=== PATIENT | female | born 1995 | race Hispanic/Latino ===

== ENCOUNTER 2024-09-10 20:03 | Inpatient (IN) | payer SELFPAY ==
[~2024-09-10] VITALS: Ht 160 cm; Wt 161.9 kg
[2024-09-10 20:36] VITALS: TEMP 99.6
[2024-09-10 21:15] LABS: BASOPHILS % 0.3 % (0.0-1.0); EOSINOPHILS % 1.3 % (0.0-6.0); LYMPHOCYTES % 17.1 % (18.0-39.1); MONOCYTES % 8.0 % (4.4-11.3); NEUTROPHILS % 73.1 % (38.7-80.0); RED CELL DISTRIBUTION WIDTH 16.5 % (11.7-14.4)
[2024-09-10] MEDS: SODIUM CHLORIDE 0.9% 1000ML 1,000 ML IV ONE (21:23)
[2024-09-10] MEDS: ACETAMINOPHEN 325 MG TAB PO ONE (21:25)
[2024-09-10 21:44] LABS: EST GLOMERULAR FILTRATION RATE 119.0 ML/MIN (>=60)
[2024-09-10] MEDS ORDERED: IOPAMIDOL 370 MG/ML 100 ML INFUS..BTL INJ ONE (22:10)
[2024-09-10] MEDS: Vancomycin IV 1 GM in SODIUM CHLORIDE 0.9% 250ML 250 ML IV ONE (22:14)
[2024-09-10] MEDS ORDERED: DEXTROSE 50% SYRINGE 50 ML IV PRN (22:45)
[2024-09-10] MEDS ORDERED: ONDANSETRON HCL INJ 2MG/ML 2ML 2 MG/ML VIAL IV PRN (22:45)
[2024-09-10] MEDS ORDERED: Morphine 4mg INJECTION 4 MG/ML INJ IV PRN (22:45)
[2024-09-10 23:00] VITALS: PULSE 96; RESP 16
[2024-09-10 23:55] VITALS: BP 95/48; PULSE 100; RESP 19; TEMP 97.5
[2024-09-11] VITALS (10 sets, daily range): BP systolic 95–143; BP diastolic 48–89; PULSE 70–100; RESP 18–20; TEMP 97.5–98.6; O2SAT 93–100
[2024-09-11] MEDS: SODIUM CHLORIDE 0.9% 1000ML 1,000 ML IV SCH (00:22)
[2024-09-11 05:22] LABS: BASOPHILS % 0.4 % (0.0-1.0); EOSINOPHILS % 1.7 % (0.0-6.0); LYMPHOCYTES % 21.1 % (18.0-39.1); MONOCYTES % 9.9 % (4.4-11.3); NEUTROPHILS % 66.7 % (38.7-80.0); RED CELL DISTRIBUTION WIDTH 16.6 % (11.7-14.4)
[2024-09-11 06:19] LABS: EST GLOMERULAR FILTRATION RATE 126.0 ML/MIN (>=60)
[2024-09-11] MEDS: INSULIN REGULAR, HUMAN 100 UNIT/1 ML SQ SCH (07:30)
[2024-09-11] MEDS: Vancomycin IV 1 GM in SODIUM CHLORIDE 0.9% 250ML 250 ML IV SCH (09:05)
[2024-09-11] MEDS ORDERED: LIDOCAINE HCL 2% LOCAL INJ 5 ML SDV VIAL INJ ONE (12:23)
[2024-09-11] MEDS ORDERED: PROPOFOL IV EMULSION 50 ML IV ONE (12:23)
[2024-09-11] MEDS ORDERED: SEVOFLURANE INHAL SOLN 250 ML PEN BTL ONE (12:23)
[2024-09-11] MEDS ORDERED: FENTANYL CITRATE/PF 100MCG/2 ML INJ ONE ×2 (12:23→13:32)
[2024-09-11] MEDS ORDERED: MIDAZOLAM HCL 2 MG/2 ML VIAL ONE (12:23)
[2024-09-11] MEDS ORDERED: SUCCINYLCHOLINE CHLORIDE 20 MG/ML 10ML VIAL ONE (12:24)
[2024-09-11] MEDS ORDERED: FAMOTIDINE 20 MG/2 ML VIAL IV ONE (13:15)
[2024-09-11] MEDS ORDERED: ONDANSETRON HCL INJ 2MG/ML 2ML 2 MG/ML VIAL ONE (13:21)
[2024-09-11] MEDS ORDERED: DEXAMETHASONE SOD PHOS INJ 4 MG/ML SDV ONE (13:21)
[2024-09-11] MEDS ORDERED: KETAMINE HCL INJ 50 MG/ML 10 ML VIAL ONE (13:26)
[2024-09-11] MEDS ORDERED: ACETAMINOPHEN 1000 MG/100 ML 100 ML IV ONE (13:30)
[2024-09-11] MEDS ORDERED: ACETAMINOPHEN/CODEINE 300MG - 30MG TAB PO PRN (14:00)
[2024-09-11] MEDS: ONDANSETRON HCL INJ 2MG/ML 2ML 2 MG/ML VIAL ONE (14:23)
[2024-09-11] MEDS ORDERED: TRAMADOL HCL 50 MG TAB PO PRN (16:00)
[2024-09-11] MEDS: ACETAMINOPHEN 325 MG TAB PO PRN (19:16)
[2024-09-12 05:21] LABS: BASOPHILS % 0.4 % (0.0-1.0); EOSINOPHILS % 0.1 % (0.0-6.0); LYMPHOCYTES % 17.4 % (18.0-39.1); MONOCYTES % 6.6 % (4.4-11.3); NEUTROPHILS % 75.0 % (38.7-80.0); RED CELL DISTRIBUTION WIDTH 16.4 % (11.7-14.4)
[2024-09-12 05:48] LABS: CHOL/HDL RATIO 5.0 (3.0-3.6); EST GLOMERULAR FILTRATION RATE 128.0 ML/MIN (>=60); LDL CHOLESTEROL 116.0 MG/DL (60-130)
[2024-09-12 08:00] VITALS: BP 135/83; PULSE 83; RESP 21; TEMP 97.9; O2SAT 99
[2024-09-12 08:10] VITALS: BP 135/83; PULSE 83; RESP 21; TEMP 97.9; O2SAT 99
[2024-09-12 11:59] VITALS: BP 123/73; PULSE 85; RESP 21; TEMP 97.9; O2SAT 98
[2024-09-12 16:00] VITALS: BP 134/86; PULSE 89; RESP 20; TEMP 98.3; O2SAT 99
[2024-09-12] MEDS ORDERED: DOXYCYCLINE HY100 MG PO (18:42)
[2024-09-12] MEDS ORDERED: METFORMIN HCL500 MG PO (18:44)
== END 2024-09-12 20:44 | disposition home or self-care (01) | DRG 603 ==
LOC: ER 20:37 → ERHOLD 22:35 → MED/SURG 23:30
PROVIDERS: ADMIT Internal Medicine; ATTEND Internal Medicine
PROC: 0J9M0ZZ Drainage of Left Upper Leg Subcutaneous Tissue and Fascia, Open Approach (ICD-10-PCS; principal; 2024-09-11 13:14)
DX: L02.414 Cutaneous abscess of left upper limb (principal); E66.01 Morbid (severe) obesity due to excess calories; Z68.44 Body mass index [BMI] 60.0-69.9, adult; L03.116 Cellulitis of left lower limb; E11.65 Type 2 diabetes mellitus with hyperglycemia; E78.5 Hyperlipidemia, unspecified; Z79.84 Long term (current) use of oral hypoglycemic drugs; Z88.0 Allergy status to penicillin; Z88.5 Allergy status to narcotic agent
CPT/HCPCS: 36415; 71045; 73701; 80048; 80053; 80061; 81025; 82948; 83036; 83605; 83735; 85025; 87040; 87071; 87075; 87205; 93005; 94799; 99284; J0330; J0692; J1100; J1308; J2003; J2250; J2405; J3373; J7030; J7050; Q9967